=== PATIENT | female | born 1960 | race Caucasian/White ===

== ENCOUNTER → 2021-04-13 10:08 | Outpatient (CLI) | payer OTHER, SELFPAY | PROVIDERS: Visit Provider Obstetrics & Gynecology | DX: R39.15 Urgency of urination (principal) | CPT/HCPCS: 87086 ==

== ENCOUNTER → 2022-08-06 | Outpatient (CLI) | payer OTHER, SELFPAY ==
--- NOTE | 2022-08-06 | BRBX_PTH ---
PATIENT: ANA WATKINS LOC: [facility] U#:[id number] AGE/SX: 62/F ROOM: RE08/06/[address]: Dr. Kemal Alvarez MD : 1960 BED: DIS: 08/06/2022 SPEC #: [id number] RECD: 08/06/22 09:58 STATUS: RODRIGUEZ MARY #: [id number] FINA: 08/06/22 00:[address]: Kemal Alvarez DEPT: SURGICAL PATHOLOGY RECD BY: Osmar Sancehz ENTERED: 08/06/22 09:59 SP TYPE: BREAST BX OTHR DR: DEVIN Glasgow Tissues: Right breast, NOS Procedures: Surgery Specimen Level IV HEADER OPERATION: Right breast stereotactic needle core biopsy PRE-OP DIAGNOSIS: Microcalcifications 9 o?clock right breast TISSUE SUBMITTED: Right breast ISCHEMIC TIME: 1 minute FIXATION TIME: 11 hours MICROSCOPIC DIAGNOSIS Right breast, stereotactic core biopsy: Fibrocystic change and adenosis with associated banal clustered microcalcifications. No evidence of malignancy. AM:carolin 08/07/2022 MICROSCOPIC DESCRIPTION Slides are reviewed. GROSS DESCRIPTION Received in fixative is one container labeled with the patient's name and designated right breast. The specimen consists of multiple elongated fragments of mcgill-yellow fibroadipose tissue that in aggregate measure 7.5 x 3.0 x 0.3 cm. The entire specimen is submitted in three cassettes. / SJ:carolin 08/06/2022 TC:5 CPT: 14365
--- NOTE | 2022-08-06 08:07 | PCM.HP.BLA ---
History and Physical Date of Admission: 08/06/22 Visit Reasons:?R BIRADS 4 MAMMO ONLY Chief Complaint: right birads 4 mammo only Is patient in pain?: No Allergies No Known Allergies Allergy (Verified 08/01/22 13:11) Medications antiarthritic combination no.2 900 mg tablet (glucosamine-chondroitin) mg PO 08/01/22 [History Confirmed 08/01/22] atorvastatin 10 mg tablet 10 mg PO DAILY 08/01/22 [History Confirmed 08/01/22] cholecalciferol (vitamin D3) 25 mcg (1,000 unit) capsule 25 mcg PO DAILY 08/01/22 [History Confirmed 08/01/22] hydrochlorothiazide 12.5 mg tablet 12.5 mg PO DAILY 08/01/22 [History Confirmed 08/01/22] lisinopril 5 mg tablet 5 mg PO DAILY 08/01/22 [History Confirmed 08/01/22] losartan 100 mg tablet 100 mg PO DAILY 08/01/22 [History Confirmed 08/01/22] oxybutynin chloride 5 mg tablet 5 mg PO DAILY 08/01/22 [History Confirmed 08/01/22] PFSH Family History?(Updated 08/01/22 @ 13:09 by Yusra Figueredo) Aunt Breast cancer Social History?(Updated 08/01/22 @ 13:09 by Yusra Figueredo) Smoking Status:? Never smoker alcohol intake:? current alcohol intake frequency: holidays/special occasions only substance use type:? does not use HPI HPI HPI: 62-year-old female presents for surgical consultation regarding abnormal mammogram mammography.? She is referred by Yelitza Glez PA-C and a written copy my surgical consult recommendations will return to her.? The patient has a personal history of fibrocystic breast changes.? Family history is notable that her father had esophageal cancer.? The patient has never been a tobacco user.? G 2. The patient had routine screening mammography at [facility] in [facility] on July 30, 2022.? BI-RADS Category 4A.? Focal microcalcifications noted right breast 9 o'clock position greater than 10 in number.? Stereotactic biopsy recommended. 62-year-old female.? A1 First trials for which was 29 mg age 15.? She did breast-feed.? No history of previous breast biopsies.? Not on any hormone replacement therapy.? Family history only notable for a aunt and cousin who had breast cancer. is Dr. Vance Roche family practitioner The patient has had no change in her self breast exam.? No focal masses.? No focal tenderness.? No nipple discharge or bleeding. She states that she otherwise enjoys good health.? Hypertension and hyperlipidemia. She has not been a tobacco user. ROS General General: No weight change, appetite, fatigue, colon cancer, breast cancer or weakness HEENT HEENT: Yes eye surgery; No difficulty swallowing, eye injury, swollen glands or hoarseness Endo Endocrine: No thyroid disease, diabetes mellitus, thyroid cancer, Hair loss, heat intolerance or cold intolerance Skin Skin: No rash or changing moles Breast Breast: Yes abnormal mammogram; No left breast lump, right breast lump, nipple discharge, breast pain, abnormal US or breast enlargement Musc Musculoskeletal: Yes arthritis; No back problems, rheumatoid arthritis, gout or joint pain Cardio Cardiovascular: Yes high blood pressure; No murmur, pacemaker, heart disease, atrial fibrillation, heart attack, heart stent, palpitations, shortness of breat with exertion or chest pain Psych Psychiatric: No depression, anxiety or hearing voices Resp Respiratory: No shortness of breath, No sleep apnea, No cough, No COPD, Yes asthma, No emphysema and No wheezing Gastro Gastrointestinal: No abdominal pain, No nausea or vomiting, No diarrhea, Yes constipation, No blood in stool, Yes acid reflux, No hemorrhoids, No ulcers, No gallbladder problem and No black,tarry stools Kaden Hematologic: No blood thinners, No blood disorders, No bleeding, No anemia and No blood clots Neuro Neurologic: No system reviewed and no additional complaints, except as documented, No as per HPI, No abnormal gait, No abnormal hearing, No abnormal movements, No abnormal speech, No behavioral changes, No burning sensations, No confusion, No convulsions, No disequilibrium, No dizziness, No localized weakness, No frequent falls, No headache(s), No lack of coordination, No loss of vision, No memory loss, No numbness, No other visual disturbances, No radicular pain, No restless legs, No sensory deficit, No syncope, No tingling, No tremor(s), No weakness and No other Exam Const General: cooperative, healthy appearing, comfortable and no acute distress Nutritional Appearance: average body habitus [facility] Head: normal to inspection Chest Other: Bilateral breast: No focal mass.? No nipple discharge.? No distortion.? No axillary or clavicular adenopathy Assessment and Plan Assessment and Plan (1) Abnormal mammogram of right breast: ?Status:?Acute ?Plan: 62-year-old female.? I have personally reviewed her mammographic imaging for [facility] and identify clustered microcalcifications outer mid right breast.? I concur with a BI-RADS 4 grading.? I definitively recommend stereotactic needle core biopsy and have discussed technique, benefit, risk of alternatives.? She is aware of the technique and has had an opportunity to ask and have questions answered. She takes as needed Naprosyn.? I have asked her to hold the NSAIDs.? She may use acetaminophen. We will schedule and expedite her care.? I appreciate the option of assisting with her surgical management. Copy: FEDERICO Glasgow M.D., F.A.C.S. I have examined the patient and the H&P has been reviewed. There are no clinical changes since date of exam. Kemal Alvarez M.D., F.A.C.S.
--- NOTE | 2022-08-06 08:45 | OP.PCM_ITS ---
Report of Operation Date of Procedure: 08/06/22 Pre-Operative Diagnosis: Multiple clustered microcalcifications 9 o'clock posit ion right breast Post-Operative Diagnosis: Same Surgery/Procedure Performed:: Stereotactic needle core biopsy right breast 9 o'clock position Description of Surgical Findings:: Timeout informed consent was obtained. 62-year-old female was taken to the stereotactic room placed prone on the table the right breast was placed in a lateral medial view the area of rather diffused clustered microcalcifications was rapidly identified. Stereotactic images were obtained. Digital information was obtained on a single target site. Breast was prepped with Betadine. 1% lidocaine was used as a local anesthetic. A total of 10 cc was used. A small stab incision was created. An 8 gauge resolved needle was advanced to prefire depth. Prefire films were obtained demonstrating adequate localization. The device was fired. Approximately 10 cores were taken focusing on the 9:00 to 3 o'clock position superiorly. A couple inferior cores were obtained as well. Specimen mammograms are obtained demonstrating all cores with microcalcifications. A small bullet marking clip was placed and on fast view however did not demonstrate that clip. The resolved needle was reinserted and a second similar clip was placed now at the 6 o'clock position rather than previously at the 12 o'clock position. Completion images demonstrates 2 marking clips now at the 6 o'clock position. It would seem apparent that the initial clip withdrew back into the chamber upon removal. Both clips now however in good position. She was released from the device. Direct pressure was held for hemostasis. Hemostasis was intact. Steri-Strip Telfa OpSite dressing applied. She tolerated procedure well no apparent complications. Blood loss was minimal. The specimens had been immediately placed in formalin for analysis. Kemal Alvarez M.D., F.A.C.S. Surgeon: Kemal Alvarez Type of Anesthesia: Local
== END | disposition home or self-care (01) ==
PROVIDERS: PCP Physician Assistant; Visit Provider Surgery
DX: R92.8 Other abnormal and inconclusive findings on diagnostic imaging of breast (principal); Z80.3 Family history of malignant neoplasm of breast; R92.0 Mammographic microcalcification found on diagnostic imaging of breast
CPT/HCPCS: 19081; 88305; J7050

== ENCOUNTER 2022-08-24 10:58 | Day surgery (SDC) | payer OTHER, SELFPAY ==
[2022-08-22 08:51] LABS: Hematocrit 40.5 % (37-47); Hemoglobin 13.4 g/dL (12.0-15.0); Mean Corp Hgb Conc 33.1 g/dL (32-36); Mean Corpuscular Hgb 29.6 pg (27.0-32.0); Mean Corpuscular Volume 89.4 fL (81-99); Mean Platelet Vol. 10.6 fl (6.2-12.0); Platelet Count 280 K/mm3 (150-450); RBC Distribution Width SD 42.5 fl (35.1-43.9); Red Blood Count 4.53 M/mm3 (4.2-5.4); White Blood Count 6.4 K/mm3 (4.4-11.0)
[2022-08-22 09:17] LABS: Anion Gap 3 (5-15); BUN 19 mg/dL (7-18); BUN/Creat Ratio 21.9 RATIO (10-20); Calcium,Total 9.2 mg/dL (8.5-10.1); Chloride 103 mmol/L (98-107); Creatinine, Serum 0.87 mg/dL (0.55-1.02); EST Glomerular Filtration Rate 70 mL/min (>60); Est Glom Filt Rate - Afr Amer 85 mL/min (>60); Glucose 81 mg/dL (74-106); Potassium 4.4 mmol/L (3.5-5.1); Sodium Level 139 mmol/L (136-145)
--- NOTE | 2022-08-24 | BREAST_PTH ---
PATIENT: ANA WATKINS [place] [facility] [place][id number] AGE/SX: 62/F ROOM: RE08/24/[address]: Dr. Kemal Alvarez MD : 1960 BED: DIS: 08/24/2022 SPEC #: [id number] RECD: 08/24/22 15:55 STATUS: RODRIGUEZ HERNANDEZ #: [id number] FINA: 08/24/22 00:[address]: Kemal Alvarez DEPT: SURGICAL PATHOLOGY RECD BY: Gabriel Torres ENTERED: 08/27/22 08:32 SP TYPE: BREAST OTHR DR: DEVIN Glasgow Tissues: Right breast, NOS Procedures: Surgery Specimen Level V HEADER OPERATION: Right breast lumpectomy PRE-OP DIAGNOSIS: Abnormal mammogram of right breast TISSUE SUBMITTED: Right breast mass with skin ellipse, short stitch - superior, long stitch - lateral MICROSCOPIC DIAGNOSIS Right breast mass, lumpectomy: Focal fibrocystic changes and adenosis. Changes consistent with previous biopsy site. Frequent microcalcifications. Negative for atypia or malignancy. SJ:rg 08/29/2022 COMMENT Please make reference to previous specimen ([id number]) right breast, stereotactic core biopsy with diagnosis of ?fibrocystic changes and adenosis with associated banal clustered microcalcifications.? Case has been reviewed in consultation with Dr. Ni who concurs with the above diagnosis. IDC:AM MICROSCOPIC DESCRIPTION Slides are reviewed. GROSS DESCRIPTION Received fresh and post fixed in formalin is one container labeled with the patient's name and designated right breast. The specimen consists of a wire-guided lumpectomy specimen measuring 5.0 x 4.2 x 2.1 cm and weighing 21 gm. Also present in the specimen container is an unoriented fragment of skin measuring 2.0 x 0.5 cm and excised to a depth of 0.5 cm. The lumpectomy fragment is inked as follows: anterior - yellow, posterior - black, superior - blue, inferior - green, medial - red and lateral - orange. Serial sections of the lumpectomy reveal a blood-filled biopsy cavity measuring 1.8 x 1.0 x 0.6 cm. The tissue adjacent to the biopsy cavity is yellow-white. No distinct mass lesion is identified. Survey And Mapping Technician sections are submitted in ten cassettes as follows: 1 - skin, 2 & 3 - inked margins, 4-6 - biopsy cavity, 710 - labor union business representative sections of tissue surrounding biopsy cavity. Note, the specimen is submitted after additional fixation. / AM:carolin 08/27/2022 TC:5 CPT: 55344
--- NOTE | 2022-08-24 13:13 | BI_ITS ---
SURGICAL BREAST SPECIMEN RADIOGRAPH CLINICAL: Document presence of mass in biopsy specimen. FINDINGS: Specimen shows presence of mass. Electronically Signed: Daniel Lock MD at 14:56 EDT , BI/Breast Biopsy Specimen IMPRESSION: undefined
[2022-08-24 14:09] VITALS: BP 135/64; PULSE 73; RESP 16; TEMP 36.6; O2SAT 100; BMI 20.8
[2022-08-24] MEDS: Bupivacaine 0.25% 30 ML Vial (14:10)
[2022-08-24] MEDS: Lactated Ringers 1,000 ML 15 ML IV (14:19)
--- NOTE | 2022-08-24 14:28 | PCM.HP.STD ---
HPI - General General Date of Service: 08/24/22 Chief Complaint: Multiple calcifications upper outer quadrant right breast HPI Narrative ANA ROCHE, is a 62 F who presents stereotactic wire bracketed localization right breast with wire localized lumpectomy No Known Allergies Allergy (Verified 08/10/22 10:03) Medications antiarthritic combination no.2 900 mg tablet (glucosamine-chondroitin) mg PO 08/01/22 [History Confirmed 08/10/22] atorvastatin 10 mg tablet 10 mg PO DAILY 08/01/22 [History Confirmed 08/10/22] cholecalciferol (vitamin D3) 25 mcg (1,000 unit) capsule 25 mcg PO DAILY 08/01/22 [History Confirmed 08/10/22] hydrochlorothiazide 12.5 mg tablet 12.5 mg PO DAILY 08/01/22 [History Confirmed 08/10/22] lisinopril 5 mg tablet 5 mg PO DAILY 08/01/22 [History Confirmed 08/10/22] losartan 100 mg tablet 100 mg PO DAILY 08/01/22 [History Confirmed 08/10/22] oxybutynin chloride 5 mg tablet 5 mg PO DAILY 08/01/22 [History Confirmed 08/10/22] PFSH Surgical History?(Updated 08/10/22 @ 10:03 by Adelaide Bingham) S/P breast biopsy, right Family History?(Updated 08/01/22 @ 13:09 by Yusra Figueredo) Aunt Breast cancer Social History?(Updated 08/01/22 @ 13:09 by Yusra Figueredo) Smoking Status:? Never smoker alcohol intake:? current alcohol intake frequency: holidays/special occasions only substance use type:? does not use HPI HPI HPI: 62-year-old female.? She presented to me on August 01, 2022 because of an abnormal right mammogram demonstrating clustered microcalcifications at the 9 o'clock position.? On August 06, 2022 I performed a stereotactic needle core biopsy right breast 9:00.? Multiple cores were obtained and nearly all the cores had microcalcifications present.? Pathology demonstrates fibrocystic change and adenosis with associated but now clustered microcalcifications with no evidence of malignancy.? I have personally contacted the pathologist Dr. Kulwant Ni and discussed with him the pathology report.? He states that there are no findings of atypia or dysplasia and that the findings are benign and that multiple calcifications were identified. Exam Chest Other: Lateral right breast core biopsy site.? Clean dry minimal ecchymosis.? Minimal induration.? No signs of infection. Assessment and Plan Assessment and Plan (1) Abnormal mammogram of right breast: ?Status:?Acute ?Plan: Fibrocystic change.? Benign stereotactic needle core biopsy right breast.? 2 marking clips in position.? With the patient's Dr. Vance Roche I demonstrated to them the stereotactic images and core images.? We discussed the final pathology being benign the fact that I have we confirm this with Dr. Harshal Ni.? This point I do not feel that further surgical intervention is indicated.? I do plan on right unilateral mammograms 6 months and office follow-up. These calcifications are breast though are rather scattered.? We did discuss extensively the potential for sampling error and the fact that there could be malignancy elsewhere in this area although I did use an 8 gauge core needle and did a 360 degree circumferential sampling.? We discussed whether a stereotactic wire localization using a bracketing technique would be appropriate with excisional biopsy but admittedly due to the diffuse nature of the microcalcifications this would require a reasonable lumpectomy and would almost certainly lead to soft tissue loss and deformity.? She is aware of the technique, benefit, risk, alternatives. The patient and her will discuss the findings and any further intervention.? They will notify me as to whether conservative follow-up or stereotactic wire bracket localization with wire localized lumpectomy would be better for them.? They are very much aware that none of the sampling has atypia or dysplasia present but that she does have remaining microcalcifications over a more diffuse area. I appreciate the opportunity of assisting with her surgical care. Copy:Yelitza Alvarez M.D., F.A.C.S. [facility] Medical History (Updated 08/20/22 @ 10:16 by Estefania Petty) Alcohol use Arthritis Asthma Easy bruising Gastric reflux High cholesterol History of stress test Migraine headache Non-smoker Post-menopausal Home Medications atorvastatin 10 mg tablet 10 mg PO DAILY 08/01/22 [History Last Taken Unknown] cholecalciferol (vitamin D3) 25 mcg (1,000 unit) capsule 25 mcg PO DAILY 08/01/22 [History Last Taken Unknown] losartan 100 mg tablet 100 mg PO DAILY 08/01/22 [History Last Taken 08/24/22 07:00] oxybutynin chloride 5 mg tablet 5 mg PO DAILY 08/01/22 [History Last Taken Unknown] amlodipine 5 mg tablet 5 mg PO DAILY 08/20/22 [History Last Taken 08/24/22 07:00] famotidine 20 mg tablet 20 mg PO DAILY 08/20/22 [History Last Taken 08/24/22 07:00] naproxen 500 mg tablet (Naprosyn) 500 mg PO BID PRN Pain 08/20/22 [History Last Taken Unknown] tumeric 100 mg-dung 150 mg-olive 50 mg-oreg 150 mg-caprylate capsule 1 cap PO DAILY 08/20/22 [History Last Taken Unknown] Allergy/AdvReac Type Severity Reaction Status Date / Time No Known Allergies Allergy Verified 08/24/22 14:08 Family History (Updated 08/01/22 @ 13:09 by Yusra Figueredo) Aunt Breast cancer Surgical History (Updated 08/20/22 @ 10:08 by Estefania Petty) History of History of wisdom tooth extraction S/P breast biopsy, right Social History (Updated 08/01/22 @ 13:09 by Yusra Figueredo) Smoking Status: Never smoker alcohol intake: current alcohol intake frequency: holidays/special occasions only substance use type: does not use ROS Constitutional Constitutional: Reports systems reviewed and no addt'l complaints, except as documented Cardiovascular Cardiovascular: Denies chest pain Respiratory/Chest Respiratory/Chest: Denies shortness of breath at rest Gastrointestinal Gastrointestinal: Denies abdominal pain, change in bowel habits, hematochezia or melena Vital Signs Vital Signs Vital Signs: 08/24/22 14:09 08/24/22 14:09 Temperature 97.9 F Temperature Source Temporal Pulse Rate 73 Respiratory Rate 16 Respiratory Pattern Normal Blood Pressure 135/64 H Blood Pressure Mean 87 Blood Pressure Source Monitor Blood Pressure Position Semi-Fowlers Blood Pressure Location Left Arm Pulse Ox 100 Oxygen Delivery Method Room Air Weight Weight: 129 lb 3.054 oz Body Mass Index (BMI) 20.8 Physical Exam Const alert, oriented x3 and no apparent distress General Appearance: cooperative and comfortable Eyes General Eye: normal appearance of both eyes Neck General: normal visual inspection Chest inspection of chest normal Resp Effort and Inspection: able to speak in complete sentences and symmetric chest movement Auscultation: clear to auscultation bilaterally Cardio regular rate and regular rhythm GI soft to palpation, non-tender and non-distended Extremity no calf tenderness Neuro oriented x3 Psych thought process normal Results Lab / Micro Data Result Diagrams: 08/22/22 08:19 08/22/22 08:19 Assessment & Plan Assessment/Plan (1) Abnormal mammogram of right breast: PLAN: After discussion in the office regarding the extensiveness of the microcalcifications in her right breast and the fact that sampling was achieved and benign findings identified but the issue that there could be a sampling error and the residual calcifications in her breast could potentially represent a different process she is elected to proceed for a stereotactic wire localization with subsequent wire localized lumpectomy. Because of the diffuseness of the microcalcifications I anticipate doing a bracketed technique for the wire localization. She is aware of the technique, benefit, risk, alternatives. She has had an opportunity to ask questions answered. We will proceed as noted. Kemal Alvarez M.D., F.A.C.S.
--- NOTE | 2022-08-24 15:07 | DCINST_ITS ---
Discharge Instructions Procedure Breast Surgery Diet Discharge Diet: No restrictions Activity Discharge Activity: May Not Drive (for 2-3 days or while taking narcotic pain meds.) May shower in (days): 1 Lifting Restrictions: 10 pounds for 1 week. Dressing / Incision Call your doctor if your incision/area has: Continuous Slow Oozing and Sudden Increased Bleeding Call your doctor if you observe: Fever of 101 or Higher Suture Line Care: Avoid Pulling/Pushing and Avoid Pinching/Bending Remove Dressing in: 1 day Additional Dressing/Incision Instructions:: Remove bulky dressing tomorrow. May leave any opsite dressing for 3-4 days. Keep dressing in place until your follow-up appointment. Follow Up Care Test Results: Test results from this visit will be discussed in further detail at your follow- up appointment, if applicable. Discharge Plan Admission Attending Provider: Kemal Alvarez Primary Care Provider: Yelitza Glez Discharge Orders/Prescriptions Prescriptions: No Action atorvastatin 10 mg tablet 10 mg PO DAILY losartan 100 mg tablet 100 mg PO DAILY cholecalciferol (vitamin D3) 25 mcg (1,000 unit) capsule 25 mcg PO DAILY oxybutynin chloride 5 mg tablet 5 mg PO DAILY amlodipine 5 mg tablet 5 mg PO DAILY Label Comments: TAKE ONE TABLET BY MOUTH DAILY famotidine 20 mg Tablet 20 mg PO DAILY naproxen [Naprosyn] 500 mg Tablet 500 mg PO BID PRN (Reason: Pain) ynhrkoz-sroq-yqoas-oreg-capryl 100 mg-150 mg- 50 mg-150 mg Capsule 1 cap PO DAILY Referrals / Follow Up: Yelitza Glez PA [Primary Care Provider] - Disposition Disposition (needs filled in before D/C Order can be placed): Home, Self Care
--- NOTE | 2022-08-24 15:12 | OP.PCM_ITS ---
Report of Operation Date of Procedure: 08/24/22 Pre-Operative Diagnosis: Extensive calcifications upper outer quadrant right br east Post-Operative Diagnosis: Same Surgery/Procedure Performed:: Bracketed stereotactic wire localization upper outer quadrant right breast Wire localized upper outer quadrant right breast lumpectomy Description of Surgical Findings:: Timeout informed consent was obtained. The patient was taken to the stereotac tic unit. It became apparent though the 2 previously placed marking clips at the time of her stereotactic core biopsy had migrated medially. The microcalcifications were located laterally. It then became very pertinent to localize upon the microcalcifications and not upon the marking clips. She was placed in the device a lateral medial view stereotactic images obtained digital information was obtained on 2 bracketed sites. The breast was prepped with Betadine. 1% lidocaine was used as a local anesthetic. A total of 3 cc was used. A 20-gauge Kopan's needle was advanced to depth for marking #1 at the more inferior aspect of the calcifications and then a similar local and secondary Kopan's needle was placed slightly more superiorly. Tape dressings were applied the patient was taken and a mediolateral view was obtained demonstrating wires to be in excellent bracket in position. Sterile dressings were applied she was subsequent taken to the operating room for planned definitive resection. The patient was taken the operating placed on the table underwent general anesthesia the right arm was placed at right angles to the table and soft roll was placed. The right breast wires were sterilely prepped and draped. The patient had a previous incision had been used for the stereotactic core biopsy. In a vertical fashion I made an elliptical excision to remove that scar. The wi res were placed in a more medial to lateral position so I then use electrocautery to work subdermally to extend the resection site from the medial lateral viewpoint although the incision was positioned in a curvilinear vertical position. Was able to carefully identify the bracketed ends of the wire and was electrocautery circumferentially do a complete dissection around this area. I did feel that I got clean access around the area of concern. This along sutures placed lateral and a short suture superiorly the specimen was sent for mammography. On careful inspection of the specimen I felt that the bracketed area had been included. I believe that the vast majority of the area of calcification had been removed. Hemostasis was obtained with interrupted 3-0 Vicryl suture ligatures and celestine ctrocautery. 4 corner marking hemoclips were placed. Hemostasis was intact the wound was irrigated the subdermal tissues were approximated interrupted 3-0 Vicryl skin edges approximated simple subdermal sutures of interrupted 4-0 Monocryl ceferino-incisional there is no size with 30 cc of 0.25% Marcaine. Steri- Strips Telfa OpSite dressing applied followed bulky dry dressing. Sponge and instrument and needle counts reported the surgeon to be correct. Specimen skin ellipse. Wire localized breast lumpectomy. Drains none. Blood loss minimal. The patient was taken to the recovery room in satisfactory addition without apparent complication Kemal Alvarez M.D., F.A.C.S. Surgeon: Kemal Alvarez Type of Anesthesia: General and Local
[2022-08-24 16:22] VITALS: BP 135/64; BP 142/77; PULSE 71; RESP 18; TEMP 36.6; O2SAT 99
[2022-08-24 16:30] VITALS: BP 125/58; BP 135/64; PULSE 67; RESP 16; O2SAT 100
[2022-08-24 16:45] VITALS: BP 135/64; BP 137/76; PULSE 67; RESP 16; O2SAT 99
[2022-08-24 17:00] VITALS: BP 135/64; BP 139/7; PULSE 68; RESP 16; TEMP 36.3; O2SAT 100
[2022-08-24 18:45] VITALS: BP 135/64; BP 154/76; PULSE 71; RESP 16; TEMP 36.8; O2SAT 98
== END 2022-08-24 18:45 | disposition home or self-care (01) ==
LOC: SDC 10:59 → AC 10:59
PROVIDERS: PCP Physician Assistant; Referring Provider Surgery; Visit Provider Surgery
PROC: (CPT 19301; principal; 2022-08-24 12:45)
DX: R92.8 Other abnormal and inconclusive findings on diagnostic imaging of breast (principal); N60.11 Diffuse cystic mastopathy of right breast; E78.00 Pure hypercholesterolemia, unspecified; Z80.3 Family history of malignant neoplasm of breast; K21.9 Gastro-esophageal reflux disease without esophagitis; I10 Essential (primary) hypertension
CPT/HCPCS: 19301; 19281; 36415; 76098; 80048; 85027; 88305; 88307; 93005; A4648; J7120; J2405

== ENCOUNTER → 2023-08-07 | Outpatient (CLI) | payer OTHER, SELFPAY ==
--- NOTE | 2023-08-07 09:41 | BI_ITS ---
MAMMOGRAPHY - BILATERAL SCREENING 3-D TOMOSYNTHESIS REASON FOR EXAM: Female, 63 years old. SCREENING PERTINENT HISTORY: No significant family history. TECHNIQUE: 2-D mammograms and 3-D Tomosynthesis of the breast (s) were performed. CAD was performed. COMPARISON: 07/30/2022 FINDINGS: The breast composition is heterogeneously dense that can obscure small breast masses. Scattered benign calcifications are seen. No dense spiculated masses or suspicious microcalcifications are identified. No architectural distortion is identified. There is no skin thickening or retraction. There has been no significant change since the prior study. BI/SCRN MAMM (CAD)W/MARVIN BILAT IMPRESSION: No mammographic signs of malignancy. Routine yearly mammograms recommended. ASSESSMENT CATEGORY: BIRADS Category 1: Negative. A letter regarding these results will be sent to the patient by the facility within 30 days. FOLLOW UP RECOMMENDATION: Yearly follow up mammogram recommended. (A) Approximately 10% of breast cancers are not detected by mammography. A normal mammogram should not delay biopsy of a clinically suspicious abnormality. Electronically Signed: Snug Vernon MD at 19:38 EST ,
== END | disposition home or self-care (01) ==
LOC: OPBI 09:39
PROVIDERS: PCP Physician Assistant; Referring Provider Physician Assistant; Visit Provider Physician Assistant
DX: Z12.31 Encounter for screening mammogram for malignant neoplasm of breast (principal)
CPT/HCPCS: 77063; 77067

== ENCOUNTER → 2024-09-10 | Outpatient (CLI) | payer OTHER, SELFPAY ==
--- NOTE | 2024-09-10 15:27 | BI_ITS ---
EXAM: SCRN MAMM (CAD)W/MARVIN BILAT 09/10/2024 CLINICAL HISTORY: F, Age 64 y/o , SCREENING TECHNIQUE: Bilateral screening digital breast tomosynthesis with 2D and 3D images. Computer aided detection. COMPARISON: Prior exam(s) dated 08/07/2023. FINDINGS: TISSUE DENSITY: The breast tissue is composed of scattered area of fibroglandular density. Bilateral Breast Mammographic Findings: No significant masses, calcifications or other abnormalities are identified. BI/SCRN MAMM (CAD)W/MARVIN BILAT IMPRESSION: Right Breast: BIRADS 1 NEGATIVE. Left Breast: BIRADS 1 NEGATIVE. OVERALL FINAL ASSESSMENT: BIRADS 1 NEGATIVE. RECOMMENDATION: Routine annual follow-up in 1 Year A letter with findings and recommendations will be mailed to the patient. Reading Location: [facility] [place]
== END | disposition home or self-care (01) ==
PROVIDERS: PCP Physician Assistant; Referring Provider Physician Assistant; Visit Provider Physician Assistant
DX: Z12.31 Encounter for screening mammogram for malignant neoplasm of breast (principal)
CPT/HCPCS: 77063; 77067